=== PATIENT | male | born 1955 | race Caucasian/White ===

== ENCOUNTER → 2020-09-19 | Outpatient (CLI) | payer MEDICARE | END | disposition home or self-care (01) | LOC: LABPAT 10:16 | PROVIDERS: ATTEND Orthopaedic Surgery Orthopaedic Surgery of the Spine | DX: Z01.812 Encounter for preprocedural laboratory examination (principal); M99.73 Connective tissue and disc stenosis of intervertebral foramina of lumbar region | CPT/HCPCS: 87070 ==

== ENCOUNTER → 2020-09-27 | Outpatient (CLI) | payer MEDICARE | END | disposition home or self-care (01) | LOC: LABPAT 13:06 | PROVIDERS: ATTEND Orthopaedic Surgery Orthopaedic Surgery of the Spine | DX: Z01.812 Encounter for preprocedural laboratory examination (principal) | CPT/HCPCS: 86850; 86900; 86901 ==

== ENCOUNTER 2020-10-02 08:27 | Inpatient (IN) | payer MEDICARE ==
[~2020-10-02 08:27] MED LIST: DEXAMETHASONE SOD PHOSPHATE 4 MG/ML 1 ML VIAL IV PRN; LIDOCAINE 1% (10MG/ML) FOR IV START INTRADERMA PRN; ONDANSETRON 4 MG/2 ML VIAL IVP PRN; ceFAZolin 1,000 MG in SODIUM CHLORIDE 0.9% IRRIGATIO 1,000 ML IRRIGATION PRN; ceFAZolin 3 GM in SODIUM CHLORIDE 0.9% 100 ML IVPB PRN
[2020-10-02] MEDS: LACTATED RINGERS 1,000 ML IV SCH (10:50)
[2020-10-02 11:04] LABS: Glucose,Whole Blood 138 mg/dL (75-99)
[2020-10-02] MEDS ORDERED: ROCURONIUM 10 MG/ML (5 ML VIAL) IV ONE (11:51)
[2020-10-02] MEDS ORDERED: NEOSTIGMINE 1 MG/ML 10 ML VIAL ONE (11:51)
[2020-10-02] MEDS ORDERED: LIDOCAINE 1% INJ 10MG/ML (20 ML MDV) ONE (11:51)
[2020-10-02] MEDS ORDERED: HEPARIN SODIUM,PORCINE 10,000 UNIT/ML 1 ML VIAL ONE (11:51)
[2020-10-02] MEDS ORDERED: SUCCINYLCHOLINE CHLORIDE VIAL 200 MG/10 ML VIAL IV ONE (11:51)
[2020-10-02] MEDS ORDERED: MIDAZOLAM 2 MG/2 ML VIAL ONE (11:51)
[2020-10-02] MEDS ORDERED: GLYCOPYRROLATE 0.2 MG/ML 2 ML VIAL ONE (11:51)
[2020-10-02] MEDS ORDERED: PHENYLEPHRINE-0.9% NACL SYG 1,000 MCG/10 ML SYRINGE ONE (11:51)
[2020-10-02] MEDS ORDERED: ePHEDrine SULFATE/0.9% NACL/PF 50 MG/5 ML SYRINGE IV ONE (11:51)
[2020-10-02] MEDS ORDERED: SODIUM CHLORIDE 0.9% IRRIG 1,000 ML BTL IRRIGATION ONE (11:51)
[2020-10-02] MEDS ORDERED: KETAMINE 10 MG/ML 20 ML VIAL ONE (11:51)
[2020-10-02] MEDS ORDERED: PROPOFOL 10 MG/ML 20 ML VIAL IV ONE (11:51)
[2020-10-02] MEDS ORDERED: fentaNYL (PF) 50 MCG/ML 2 ML AMP ONE (11:51)
[2020-10-02] MEDS ORDERED: LIDOCAINE 0.5%-EPI 1:200,000 50 ML VIAL SQ ONE (11:55)
[2020-10-02] MEDS ORDERED: GELATIN SPONGE,ABSORB (LARGE) 1 EACH SPONGE TOPICAL ONE (11:55)
[2020-10-02] MEDS ORDERED: THROMBIN (BOVINE) 5,000 UNIT VIAL TOPICAL ONE (11:55)
[2020-10-02] MEDS ORDERED: LACTATED RINGERS 1,000 ML IV ONE ×3 (12:50→14:04)
[2020-10-02] MEDS ORDERED: SODIUM CHLORIDE 0.9% 50 ML with ceFAZolin 3 GM IV ONE ×2 (15:46)
[2020-10-02] MEDS ORDERED: BENZOCAINE/MENTHOL LOZENG 1 EACH LOZENGE MUCOUS MEM PRN (16:41)
[2020-10-02] MEDS ORDERED: HYDROmorphone 0.5 MG/0.5 ML SYRINGE IVP PRN (16:41)
[2020-10-02] MEDS ORDERED: ONDANSETRON 4 MG/2 ML VIAL IVP PRN (16:41)
[2020-10-02] MEDS ORDERED: diazePAM 5 MG TAB PO PRN (16:41)
[2020-10-02] MEDS ORDERED: MAGNESIUM HYDROXIDE 2,400 MG/10 ML CUP PO PRN (16:41)
[2020-10-02] MEDS ORDERED: ACETAMINOPHEN TAB 500 MG TAB PO PRN (16:44)
--- NOTE | 2020-10-02 16:50 | P.OP ---
Date of Procedure: 10/02/20 Preoperative Diagnosis: Spinal stenosis L3 4 L4 5, lower extremity radiculopathy, neurogenic medication bilateral lower extremities, severe facet arthrosis, degenerative disc disease, spondylolisthesis Postoperative Diagnosis: Same Anesthesia: GETA Pathology: none sent Condition: stable Disposition: PACU Description of Procedure: DESCRIPTION OF PROCEDURE(S): BRIEF OPERATIVE NOTE Preoperative Diagnosis: Spinal stenosis L3 4 L4 5, lower extremity radiculopathy, neurogenic medication bilateral lower extremities, severe facet arthrosis, degenerative disc disease, spondylolisthesis Postoperative Diagnosis: SameSpinal stenosis L3 4 L4 5, lower extremity radiculopathy, neurogenic medication bilateral lower extremities, severe facet arthrosis, degenerative disc disease, spondylolisthesis Procedure: Laminectomy and decompression L3 [address] navigation aided Minimally invasive Posterior lateral decompression and facet fusion L3 4 L4 5 Minimally invasive Transforaminal lumbar interbody fusion for a 360 fusion L3 4 L4 5 Discectomy for decompression L3 4 L4 5 Placement of interbody graft L3 4 L4 5 Use of computer navigation for fusion Local autogenous bone grafting Aspiration of bone marrow from the vertebral body pedicle of L3 Use of bone graft extenders Surgeon: Dr. Devine Element Setter: Diallo RODRIGUEZ who is present throughout the entire the case persistence during positioning, dissection, exposure, visualization, and all crucial elements of the case as well as closure. Anesthesia: General anesthesia per Dr. Dr. Bains Estimated blood loss: Approximately 400 mL Complications: None apparent Components implanted: K2M minimally invasive Hope pedicle screw system withscrews measuring 6.5 mm in diameter to rods pro- lift interbody cage measuring 8-13 and 10-16 with 10 mL of osteo amp bio4 bone graft substitute and 30 mL of the BX bone fibers to supplement the local autogenous bone graft and bone marrow aspirate Disposition: To recovery room in good stable condition. OPERATIVE INDICATIONS The patient has had severe issues at their lower extremity in her lower back over the past several years with significant worsening over the past several months. Over the past few months the patient had pain at her back and there right lower extremity. The patient is having severe radicular symptoms.. The patient is having significant pain in his back. He is having worsening pain despite aggressive conservative treatment They are unable to obtain any comfort. We did aggressive conservative treatment with medications therapy and interventional pain management however she was not having any relief. The patient has been through conservative treatment. We discussed various treatment options including surgery, and the patient wishes to proceed with surgery We discussed the risk, patient's alternatives and benefits of surgery including but not limited to, risk of bleeding risk of infection, risk of need for further surgery, risk of decreased, loss of motion, muscle function, malunion nonunion, hardware failure, nerve damage, paralysis, heart attack, blindness and . They understood issues with the current pandemic and the possibility of exposure. OPERATIVE SUMMARY After discussing all the risks, patient alternatives and benefits at length, the patient elected to proceed with surgical intervention, signed informed consent, and presented for their procedure. The patient was seen and examined in the preoperative holding area and the surgical site was marked. The patient was given antibiotics and brought to the operating room. The patient was sedated and intubated by anesthesia in standard fashion. The patient was positioned on to the operating room table in a prone position on the appropriate frame which was well-padded and well molded. We were careful to pad any bony prominences and pressure points. We were careful to maintain the patient's cervical spine and good neutral alignment and position throughout. The patient was prepped and draped in a normal standard fashion. An appropriate timeout and keystone protocol performed. We were able to proceed with the surgery. The local wound area was infiltrated with local anesthetic. Over L3 to 5 Over the right iliac crest I was able to make small stab incisions and establish a guidepin screw fixation to the iliac crest 2. I was able place the computer referencing device over the guidepins to establish an appropriate reference point for the Ziem CT navigation. We then were able to place patient in an appropriate drape and do a navigation spin for visualization and 3-D recon struction of the lumbar spine. I was able utilize C-arm guidance and navigation to establish appropriate position over the pedicles bilaterally at the appropriate levels . With the appropriate levels confirmed was able to make small stab incisions over the appropriate pedicle sites bilaterally at L3-L4 and L5 bilaterally. Utilizing the computer navigation device I was able to establish bony landmarks at the right iliac crest for a bony reference point for the navigation device. I was able to establish a Jamshidi needle over the lateral aspect of the pedicle and advanced the trocar into the pedicle being careful not to breech superiorly inferiorly medially or laterally using computer navigation device. Position was confirmed regularly with AP and lateral images on C-arm and with the computer navigation device at the appropriate levels bilaterally. I was able to establish the trocar into the pedicle appropriately into the posterior aspect of the vertebral body bilaterally at the appropriate levels. This was done at each of the pedicle positions and each of the vertebrae. At the superior vertebrae of L3 I was able to take approximately 25 mL of bone aspiration for use later in the case to supplement the allograft and autograft bone. I was able place the guidewire into the trocar and into the vertebral body appropriately under C-arm guidance. Dissection was taken down over the wire to the appropriate starting position for the screw placed. The appropriate length screw was chosen, threaded over the guidewire and screwed appropriately into the pedicle and vertebral body under C-arm guidance in excellent alignment and position with good bony purchase. This is done at each of the screw sites at the appropriate levels at L3 4 and 5.. With the screws intact I extended the incision to connect the screw hole sites on the most symptomatic side on the right. I dissected down to establish access over the pars and lamina to the base of the spinous process. I was able to expose the facet joint. Note was made of severe facet arthrosis with extensive osteophytic spurring which had to be removed. I performed this at both L3 4 and L4 5 on the right The capsule the facet was taken down and showed some facet arthrosis at the joint. I was able to use a combination of curettes and Kerrison rongeurs and a high-speed drill to take down the facet joint and do a facetectomy. I was able get excellent foraminal decompression and central decompression with undermining across midline to perform a laminectomy centrally and contralaterally. As able get good central decompression. The ligamentum flavum was taken down to further decompress centrally and at bilateral neural foramen. I was able to expose the disc space and visualize the traversing nerve root. Note was made of some disc protrusion and disc herniation that was abutting the traversing nerve root at the level causing further compression of the nerve root. I was able to establish a annulotomy at the appropriate level protecting soft tissue and neural structures. Note was made of some disc desiccation at the disc. I performed a complete discectomy with accommodation of curettes and rasps and scrapers. I was able get good endplate preparation at the disc space. I sized for the appropriate size interbody spacer protecting the soft tissue and neural structures. The wound was copiously irrigated and suctioned dry. There is no evidence of any dural tear or leak. I was able to pack the disc space with local autogenous bone graft as well as a small amount of bone graft which was also placed into the interbody cage itself. Protecting the soft tissue structures and neural structures I was able place the interbody cage in good alignment. I used expandable lift cages and was able to expand the cages for the 8-13 cage at L4 5 and the t10-16 cage at L3 4 and good position with good fit and fill at the interbody space. Position was confirmed with C-arm guidance. Good hemostasis maintained. There is no evidence of any dural tear or leak. The wound was irrigated and suctioned dry. With the hardware intact, intraoperative C-arm imaging was again taken which showed good alignment and position of the hardware at the appropriate levels. We were then able to measure, contour and place the rods and appropriate hardware bilaterally. I was able to place capcrews, tighten them down, and torque them with the torque screwdriver appropriately. With this intact I was able to place the local autogenous bone graft with additional bone graft enhancer as necessary into the posterior lateral gutters over the decorticated transverse processes and facet joints on the contralateral side. The remainder of the bone graft was placed over the facet joint on the contralateral side after taking down the facet joint capsule. With the bone graft intact, a stable construct, and good decompression at the appropriate levels, we were able to proceed with closure. Good hemostasis was maintained. There is no evidence of dural tear or leak. The fascia was closed for a watertight closure. he subcuticular tissue was closed with absorbable suture. The wound was cleaned and dried and dressed with the appropriate dressing. The drapes were broken down. The patient was gently rolled back onto their hospital bed being careful to maintain their cervical spine and good neutral alignment and position. They were woken up by anesthesia, extubated, and brought to the recovery room in good stable condition. The patient will be admitted to the hospital for appropriate postoperative care, medical management and monitoring. We will continue to follow them closely about the postoperative course.
[2020-10-02 17:18] LABS: Glucose,Whole Blood 131 mg/dL (75-99)
[2020-10-02] MEDS: HYDROmorphone 0.5 MG/0.5 ML SYRINGE IVP PRN ×2 (17:19→17:23)
[2020-10-02] MEDS ORDERED: ONDANSETRON 4 MG/2 ML VIAL IVP ONE (17:19)
[2020-10-02] MEDS: HYDROmorphone 1 MG/ML 1 ML SYRINGE IVP PRN (19:20)
[2020-10-02] MEDS: metFORMIN 500 MG TAB PO SCH (20:34)
[2020-10-02] MEDS: COLCHICINE 0.6 MG EACH PO SCH (20:34)
[2020-10-02] MEDS: lisinopriL 10 MG TAB PO SCH (20:34)
[2020-10-02] MEDS: GABAPENTIN 300 MG CAP PO SCH (20:34)
[2020-10-02] MEDS: allopurinoL 100 MG TAB PO SCH (20:34)
[2020-10-02] MEDS: METOPROLOL SUCCINATE (ER) 50 MG TAB.ER.24H PO SCH (20:35)
[2020-10-02] MEDS: HYDROcodone/APAP 5-325MG 1 EACH TAB PO PRN (20:35)
[2020-10-02] MEDS: SODIUM CHLORIDE 0.9% 1,000 ML IV SCH (20:37)
[2020-10-02] MEDS: NON FORMULARY DRUG (Lovastatin 20 MG Tab) PO SCH (20:37)
[2020-10-02] MEDS: ceFAZolin 3 GM in SODIUM CHLORIDE 0.9% 100 ML IVPB SCH (22:58)
--- NOTE | 2020-10-02 23:03 | P.CONS ---
History of Present Illness - Reason for Consult Consult date: 10/02/20 Medical management Requesting physician: Piyush Devine - Chief Complaint Lumbar surgery - History of Present Illness Consultation: This is a pleasant 65-year-old patient, Dr. Mcgovern chronic stable medical conditions include diabetes, hypertension, hyperlipidemia, peripheral neuropathy, gout, does not use CPAP. Patient has a long-standing history of low back pain with neuropathy with pain going down the right leg. Causing difficulty in walking. Patient had been using a cane. Patient dispensed dose at L3-L4, L4-L5 DJD, spondylolisthesis. Patient underwent laminectomy and decompression. Postprocedure patient reclining in bed. Some pain is present. He does all day feels some pressure off the legs. No nausea vomiting. Did tolerate his supper. No chest pain or shortness of breath Review of systems: GEN.: Tired EYES: None HEENT: None NECK: None RESPIRATORY: None CARDIOVASCULAR: None GASTROINTESTINAL: None GENITOURINARY: Has a Andrade catheter MUSCULOSKELETAL: As above LYMPHATICS: None HEMATOLOGICAL: None PSYCHIATRY: None NEUROLOGICAL: None Past medical history to include: Diabetes, hypertension, hyperlipidemia, obstructive sleep apnea does not use CP AP, peripheral neuropathy, gout, Social history: Lives with his . Alcohol occasionally. No smoking. Family history: Reviewed, noncontributory to presentation Physical examination: VITAL SIGNS: 97.7, 78, 137/77, 94% on 1 L GENERAL: BMI 42.8, sitting up, reclining in bed, awake. EYES: Pupils equal. Conjunctiva normal. HEENT: External appearance of nose and ears normal, oral cavity grossly normal. NECK: JVD unable to assess masses not palpable. HEART: Heart sounds distant; no edema. LUNGS: Respiratory rate normal; distant breath sounds. ABDOMEN: Soft, nontender, liver spleen not palpable, no masses palpable. PSYCH: Alert and oriented x3; mood and affect normal. NEUROLOGICAL: Cranial nerves grossly intact; no facial asymmetry, power and sensation grossly intact. LYMPHATICS: No lymph nodes palpable in the axilla and neck Assessment and plan: -Lumbar stenosis L3-L4, L4-L5 with DJD with significant radiculopathy. Still undergone laminectomy and discectomy. -Morbid obesity BMI 42.8. For weight loss measures. Follow up with his PCP. See dietitian -Diabetes mellitus type 2, resume Glucophage, follow Accu-Cheks -Essential hypertension, continue with Toprol-XL Zestril colchicine -Hyperlipidemia, continue with Mevacor -Obstructive sleep apnea does not use CPAP -Diabetic peripheral neuropathy, follow clinically. Patient on Neurontin -Chronic gout, continue with allopurinol Medicine for pain control and is in place. Venodyne boots. Care was discussed with the patient. Questions answered. Thank you Dr. Devine Past Medical History Past Medical History: Diabetes Mellitus, Hyperlipidemia, Hypertension, Musculoskeletal Disorder, Sleep Apnea/CPAP/BIPAP Additional Past Medical History / Comment(s): Gout. Neuropathy feet. Lumbar spine prob. No CPAP use currently. Edema BLE minor. Had Covid-19 vaccine x2. History of Any Multi-Drug Resistant Organisms: None Reported Past Surgical History: Orthopedic Surgery Additional Past Surgical History / Comment(s): Rt knee scope. Exc fatty tumor rib cage. Past Anesthesia/Blood Transfusion Reactions: No Reported Reaction Past Psychological History: No Psychological Hx Reported Smoking Status: Never smoker Past Alcohol Use History: Occasional Past Drug Use History: None Reported - Past Family History Mother Family Medical History: No Reported History Medications and Allergies Home Medications Medication Instructions Recorded Confirmed Type Acetaminophen [Tylenol Extra 500 mg PO DIRECTED PRN 09/16/20 09/27/20 History Strength] Allopurinol [Zyloprim] 100 mg PO HS 09/16/20 09/27/20 History Colchicine [Colcrys] 0.6 mg PO HS 09/16/20 09/27/20 History Gabapentin [Neurontin] 300 mg PO HS 09/16/20 09/27/20 History Lisinopril [Zestril] 10 mg PO HS 09/16/20 09/27/20 History Lovastatin [Mevacor] 20 mg PO HS 09/16/20 09/27/20 History Metoprolol Succinate [Toprol XL] 50 mg PO HS 09/16/20 09/27/20 History hydroCHLOROthiazide [Hydrodiuril] 50 mg PO HS 09/16/20 09/27/20 History metFORMIN HCL [Glucophage] 1,000 mg PO BID 09/16/20 09/27/20 History Allergies Allergy/AdvReac Type Severity Reaction Status Date / Time naproxen [From Naprosyn] Allergy Rash/Hives Verified 10/02/20 10:34 atorvastatin [From Lipitor] AdvReac elevated Verified 10/02/20 10:34 liver count Physical Exam Vitals: Vital Signs Temp Pulse Resp BP Pulse Ox 10/02/20 20:00 68 16 10/02/20 19:58 68 113/73 93 L 10/02/20 19:43 72 122/77 92 L 10/02/20 19:28 75 124/73 93 L 10/02/20 19:13 74 121/71 95 10/02/20 18:58 71 128/78 94 L 10/02/20 18:43 74 143/69 94 L 10/02/20 18:28 77 124/78 10/02/20 18:13 77 118/66 94 L 10/02/20 17:58 97.7 F 78 137/77 87 L 10/02/20 17:42 68 16 124/60 93 L 10/02/20 17:30 65 16 100/59 92 L 10/02/20 17:15 68 14 109/56 94 L 10/02/20 17:00 68 14 96/51 97 10/02/20 16:55 97.8 F 74 16 97/58 96 10/02/20 10:42 98.6 F 84 16 153/80 96 Intake and Output 10/02/20 10/02/20 10/02/20 06:59 14:59 22:59 Intake Total 2701 350 Output Total 1775 Balance 2701 -1425 Intake: IV 2701 350 Output: Urine 975 Estimated Blood Loss 800 Other: Voiding Method Indwelling Catheter Weight 147.3 kg 147.3 kg Results Labs: Abnormal Lab Results - Last 24 Hours (Table) 10/02/20 10/02/20 Range/Units 10:58 17:16 POC Glucose (mg/dL) 138 H 131 H (75-99) mg/dL
[2020-10-03] MEDS: LACTATED RINGERS 1,000 ML IV SCH (01:08)
[2020-10-03] MEDS: HYDROmorphone 1 MG/ML 1 ML SYRINGE IVP PRN ×2 (04:18→14:22)
[2020-10-03] MEDS: HYDROcodone/APAP 5-325MG 1 EACH TAB PO PRN ×4 (05:55→21:17)
--- NOTE | 2020-10-03 07:57 | FL ---
Fluoroscopy INDICATION: Pain FINDINGS: Fluoroscopy time: 25 seconds. Images obtained: 0. IMPRESSIONS: 1. Documentation of fluoroscopy.
[2020-10-03] MEDS: metFORMIN 500 MG TAB PO SCH ×2 (08:00→21:17)
--- NOTE | 2020-10-03 08:00 | XR ---
Fluoroscopy INDICATION: Pain FINDINGS: Fluoroscopy time: 25 seconds. Images obtained: 2. IMPRESSIONS: 1. Documentation of fluoroscopy.
[2020-10-03] MEDS: ceFAZolin 3 GM in SODIUM CHLORIDE 0.9% 100 ML IVPB SCH (08:01)
[2020-10-03] MEDS: SENNOSIDES-DOCUSATE SODIUM 1 EACH TAB PO SCH (08:01)
[2020-10-03 09:51] LABS: African American GFR (CKD) 73.1 (60.0-200.0); Anion Gap 13.7 mmol/L (4.00-12.00); BUN/Creat Ratio 17.5 Ratio (12.00-20.00); Carbon Dioxide 26.3 mmol/L (21.6-31.8); Non-African American GFR(CKD) 63.1 (60.0-200.0); Potassium 4.1 mmol/L (3.5-5.5)
[2020-10-03 10:15] LABS: Basophils # (A) 0.06 X 10*3/uL (0.00-0.10); Basophils % (A) 0.5 %; Eosinophils # (A) 0.08 X 10*3/uL (0.04-0.35); Eosinophils % (A) 0.6 %; HCT 43.3 % (39.6-50.0); HGB 14.2 g/dL (13.0-17.0); Lymphocytes % (A) 12.5 %; MCH 31.3 pg (27.0-32.0); MCHC 32.8 g/dL (32.0-37.0); MCV 95.4 fL (80.0-97.0); Mean Platelet Volume 13.7 fL (9.5-12.2); Monocytes # (A) 1.32 X 10*3/uL (0.20-1.00); Monocytes % (A) 10.4 %; Neutrophils # (A) 9.61 X 10*3/uL (1.80-7.70); Neutrophils % (A) 75.4 %; Platelet Count 197 X 10*3/uL (140-440); RBC 4.54 X 10*6/uL (4.40-5.60); RDW 14.3 % (11.5-14.5); WBC 12.75 X 10*3/uL (4.50-10.00)
--- NOTE | 2020-10-03 10:49 | P.PN ---
Progress Note - Text Progress Note Date: 10/03/20 Postoperative day #1 Patient is seen and examined today at bedside. The patient has some pain around the surgical site as expected. Pain is being controlled with medication. He was able get out of bed last night and this morning. He has his Andrade removed he has not yet urinated. He is tolerating his diet adequately. Physical Exam Afebrile with stable vital signs Abdomen is soft nontender. Chest has good excursion deep and space expiration The incision site is clean dry and intact. No erythema there is no purulence. There is no active drainage. Extremities have not had neurologic change from prior to surgery. He has sustained dorsal flexion plantarflexion and EHL intact Calves and thighs were soft nontender without evidence of DVT. Assessment/Plan Postoperative day #1 status post minimally invasive decompression and fusion L3 4 L4 5 for severe stenosis with degenerative disc disease and facet arthrosis lower extremity radiculopathy Patient is progressing as expected from the surgery. He is doing well with his pain control and has been able to mobilize. He is not yet urinated and still require significant help for changing positions. I think he'll be okay for discharge home likely on Wednesday. We will continue to increase the patient's mobilization with therapy. We will continue pain control with oral or IV medications. We'll continue to follow patient closely.
[2020-10-03] MEDS: SODIUM CHLORIDE 0.9% 1,000 ML IV SCH ×2 (14:10→21:13)
[2020-10-03] MEDS: lisinopriL 10 MG TAB PO SCH (21:17)
[2020-10-03] MEDS: GABAPENTIN 300 MG CAP PO SCH (21:17)
[2020-10-03] MEDS: METOPROLOL SUCCINATE (ER) 50 MG TAB.ER.24H PO SCH (21:17)
[2020-10-03] MEDS: COLCHICINE 0.6 MG EACH PO SCH (21:18)
[2020-10-03] MEDS: allopurinoL 100 MG TAB PO SCH (21:19)
[2020-10-03] MEDS: NON FORMULARY DRUG (Lovastatin 20 MG Tab) PO SCH (21:25)
--- NOTE | 2020-10-03 23:17 | P.PN ---
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 Patient has a long-standing history of low back pain with neuropathy with pain going down the right leg. Causing difficulty in walking. Patient had been using a cane. Abnormality at L3-L4, L4-L5 DJD, spondylolisthesis. Patient underwent laminectomy and decompression. Today: Supple the patient this morning. Sitting upon a chair. Andrade catheter discontinued. Some pain present. No nausea vomiting. Did tolerate his breakfast. Review of systems: Was done for constitutional, cardiovascular, GI, pulmonary. relevant finding as above Active Medications Acetaminophen (Acetaminophen Tab 500 Mg Tab) 500 mg PO Q6H PRN PRN Reason: Pain Hydrocodone Bitart/Acetaminophen (Hydrocodone/Apap 5-325mg 1 Each Tab) 1 each PO Q4HR PRN PRN Reason: Moderate Pain Last Admin: 10/03/20 21:17 Dose: 1 each Documented by: Hydrocodone Bitart/Acetaminophen (Hydrocodone/Apap 5-325mg 1 Each Tab) 2 each PO Q4HR PRN PRN Reason: Moderate Pain Last Admin: 10/03/20 16:45 Dose: 2 each Documented by: Allopurinol (Allopurinol 100 Mg Tab) 100 mg PO [facility] Last Admin: 10/03/20 21:19 Dose: 100 mg Documented by: Benzocaine/Menthol (Benzocaine/Menthol Lozeng 1 Each Lozenge) 1 each MUCOUS MEM Q4HR PRN PRN Reason: Sore Throat Colchicine (Colchicine 0.6 Mg Each) 0.6 mg PO [facility] Last Admin: 10/03/20 21:18 Dose: 0.6 mg Documented by: Dexamethasone Sodium Phosphate (Dexamethasone Sod Phosphate 4 Mg/Ml 1 Ml Vial) 4 mg IV ONCE PRN PRN Reason: PRE-OP Diazepam (Diazepam 5 Mg Tab) 5 mg PO QID PRN PRN Reason: Anxiety Gabapentin (Gabapentin 300 Mg Cap) 300 mg PO [facility] Last Admin: 10/03/20 21:17 Dose: 300 mg Documented by: Hydrochlorothiazide (Hydrochlorothiazide 50 Mg Tab) 50 mg PO [facility] Last Admin: 10/03/20 21:18 Dose: 50 mg Documented by: Hydromorphone HCl (Hydromorphone 0.5 Mg/0.5 Ml Syringe) 0.5 mg IVP Q4HR PRN PRN Reason: Pain Hydromorphone HCl (Hydromorphone 1 Mg/Ml 1 Ml Syringe) 1 mg IVP Q4HR PRN PRN Reason: Pain Last Admin: 10/03/20 14:22 Dose: 1 mg Documented by: Sodium Chloride (Saline 0.9%) 1,000 mls @ 75 mls/hr IV .[id number] [facility] Last Admin: 10/03/20 21:13 Dose: Not Given Documented by: Lidocaine HCl (Lidocaine 1% (10mg/Ml) For Iv Start) 0.1 ml INTRADERMA PER PROTOCOL PRN PRN Reason: IV Start Last Admin: 10/02/20 10:50 Dose: 0.1 ml Documented by: Lisinopril (Lisinopril 10 Mg Tab) 10 mg PO [facility] Last Admin: 10/03/20 21:17 Dose: 10 mg Documented by: Magnesium Hydroxide (Magnesium Hydroxide 2,400 Mg/10 Ml Cup) 2,400 mg PO DAILY PRN PRN Reason: Constipation Metformin HCl (Metformin 500 Mg Tab) 1,000 mg PO BID [facility] Last Admin: 10/03/20 21:17 Dose: 1,000 mg Documented by: Metoprolol Succinate (Metoprolol Succinate (Er) 50 Mg Tab.Er.24h) 50 mg PO [facility] Last Admin: 10/03/20 21:17 Dose: 50 mg Documented by: Non-Formulary Medication (Lovastatin) 20 mg PO [facility] Last Admin: 10/03/20 21:25 Dose: Not Given Documented by: Ondansetron HCl (Ondansetron 4 Mg/2 Ml Vial) 4 mg IVP ONCE PRN PRN Reason: PRE-OP Last Admin: 10/02/20 11:00 Dose: 4 mg Documented by: Ondansetron HCl (Ondansetron 4 Mg/2 Ml Vial) 4 mg IVP Q6HR PRN PRN Reason: Nausea Senna/Docusate Sodium (Sennosides-Docusate Sodium 1 Each Tab) 1 each PO DAILY [facility] Last Admin: 10/03/20 08:01 Dose: 1 each Documented by: Past medical history to include: Diabetes, hypertension, hyperlipidemia, obstructive sleep apnea does not use CPAP, peripheral neuropathy, gout, Social history: Lives with his . Alcohol occasionally. No smoking. Family history: Reviewed, noncontributory to presentation Physical examination: VITAL SIGNS: 98.1, 83, 19, 105/69, 98% on room air GENERAL: BMI 42.8, sitting up, in a chair EYES: Pupils equal. Conjunctiva normal. HEENT: External appearance of nose and ears normal, oral cavity grossly normal. NECK: JVD unable to assess masses not palpable. HEART: Heart sounds distant; no edema. LUNGS: Respiratory rate normal; distant breath sounds. ABDOMEN: Soft, nontender, liver spleen not palpable, no masses palpable. PSYCH: Alert and oriented x3; mood and affect normal. Investigations: WBC 12.7 hemoglobin 14.2 potassium 4.1 creatinine 1.2 Assessment and plan: -Lumbar stenosis L3-L4, L4-L5 with DJD with significant radiculopathy. Status post laminectomy and discectomy. -Morbid obesity BMI 42.8. For weight loss measures. Follow up with his PCP. See dietitian -Diabetes mellitus type 2, resume Glucophage, follow Accu-Cheks -Essential hypertension, continue with Toprol-XL Zestril colchicine -Hyperlipidemia, continue with Mevacor -Obstructive sleep apnea does not use CPAP -Diabetic peripheral neuropathy, follow clinically. Patient on Neurontin -Chronic gout, continue with allopurinol Discussed with the patient. Increase activity as tolerated. Thank you Dr. Devine
[2020-10-04] MEDS: HYDROcodone/APAP 5-325MG 1 EACH TAB PO PRN ×5 (00:48→21:14)
[2020-10-04 07:10] LABS: Glucose,Whole Blood 132 mg/dL (75-99)
[2020-10-04] MEDS: INSULIN ASPART (NovoLOG) 100 UNIT/ML VIAL SQ SCH ×4 (07:39→21:15)
--- NOTE | 2020-10-04 07:45 | P.PN ---
Progress Note - Text Progress Note Date: 10/04/20 Postoperative day #2 Patient is seen and examined today at bedside. The patient has some pain around the surgical site as expected. He feels the pain is stabbing and primarily at his back and across his hips. He is not having any new changes in his legs. His legs feel good but he is having difficulty getting from a sitting to standing position and from a laying to sitting position as expected. Pain is being controlled with medication. He is not taking any IV pain medication at this point and is tolerating adequately with orals. He is tolerating his regular diet. Physical Exam Afebrile with stable vital signs Abdomen is soft nontender. Chest has good excursion deep and space expiration The incision site is clean dry and intact. No erythema there is no purulence. There is no active drainage. There is no erythema. Extremities have not had neurologic change from prior to surgery. He has sustained dorsal flexion plantar flexion and EHL intact. Calves and thighs were soft nontender without evidence of DVT. Assessment/Plan Postoperative day #2 status post Base of decompression and fusion L3 4 L4 5 for his severe spinal stenosis with disc degeneration and listhesis with lower extremity radiculopathy Patient is progressing as expected from the surgery. He is still having some trouble changing positions and getting up on his own has not quite safe to be at home on his own. He will continue to work with therapy and hopefully he'll be more mobile tomorrow for possible discharge home We will continue to increase the patient's mobilization with therapy. We will continue pain control with oral or IV medications. We'll continue to follow patient closely.
[2020-10-04] MEDS: metFORMIN 500 MG TAB PO SCH ×2 (08:13→21:14)
[2020-10-04] MEDS: SENNOSIDES-DOCUSATE SODIUM 1 EACH TAB PO SCH (08:13)
[2020-10-04] MEDS: SODIUM CHLORIDE 0.9% 1,000 ML IV SCH ×2 (09:00→23:54)
[2020-10-04] MEDS: HYDROmorphone 1 MG/ML 1 ML SYRINGE IVP PRN ×2 (09:41→15:08)
[2020-10-04 11:37] LABS: Glucose,Whole Blood 143 mg/dL (75-99)
[2020-10-04 16:45] LABS: Glucose,Whole Blood 127 mg/dL (75-99)
[2020-10-04 20:29] LABS: Glucose,Whole Blood 156 mg/dL (75-99)
[2020-10-04] MEDS: METOPROLOL SUCCINATE (ER) 50 MG TAB.ER.24H PO SCH (21:14)
[2020-10-04] MEDS: GABAPENTIN 300 MG CAP PO SCH (21:14)
[2020-10-04] MEDS: allopurinoL 100 MG TAB PO SCH (21:14)
[2020-10-04] MEDS: lisinopriL 10 MG TAB PO SCH (21:14)
[2020-10-04] MEDS: COLCHICINE 0.6 MG EACH PO SCH (21:15)
--- NOTE | 2020-10-04 21:45 | P.PN ---
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 Patient has a long-standing history of low back pain with neuropathy with pain going down the right leg. Causing difficulty in walking. Patient had been using a cane. Abnormality at L3-L4, L4-L5 DJD, spondylolisthesis. Patient underwent laminectomy and decompression. Today: Sitting up in a chair. Did walk with a walker. Feeling better. Oral intake fair. at the bedside. Feels better. Review of systems: Was done for constitutional, cardiovascular, GI, pulmonary. relevant finding as above Active Medications Acetaminophen (Acetaminophen Tab 500 Mg Tab) 500 mg PO Q6H PRN PRN Reason: Pain Hydrocodone Bitart/Acetaminophen (Hydrocodone/Apap 5-325mg 1 Each Tab) 1 each PO Q4HR PRN PRN Reason: Moderate Pain Last Admin: 10/04/20 17:01 Dose: 1 each Documented by: Hydrocodone Bitart/Acetaminophen (Hydrocodone/Apap 5-325mg 1 Each Tab) 2 each PO Q4HR PRN PRN Reason: Moderate Pain Last Admin: 10/04/20 21:14 Dose: 2 each Documented by: Allopurinol (Allopurinol 100 Mg Tab) 100 mg PO [facility] Last Admin: 10/04/20 21:14 Dose: 100 mg Documented by: Benzocaine/Menthol (Benzocaine/Menthol Lozeng 1 Each Lozenge) 1 each MUCOUS MEM Q4HR PRN PRN Reason: Sore Throat Colchicine (Colchicine 0.6 Mg Each) 0.6 mg PO [facility] Last Admin: 10/04/20 21:15 Dose: 0.6 mg Documented by: Dexamethasone Sodium Phosphate (Dexamethasone Sod Phosphate 4 Mg/Ml 1 Ml Vial) 4 mg IV ONCE PRN PRN Reason: PRE-OP Diazepam (Diazepam 5 Mg Tab) 5 mg PO QID PRN PRN Reason: Anxiety Gabapentin (Gabapentin 300 Mg Cap) 300 mg PO [facility] Last Admin: 10/04/20 21:14 Dose: 300 mg Documented by: Hydrochlorothiazide (Hydrochlorothiazide 50 Mg Tab) 50 mg PO [facility] Last Admin: 10/04/20 21:15 Dose: 50 mg Documented by: Hydromorphone HCl (Hydromorphone 0.5 Mg/0.5 Ml Syringe) 0.5 mg IVP Q4HR PRN PRN Reason: Pain Hydromorphone HCl (Hydromorphone 1 Mg/Ml 1 Ml Syringe) 1 mg IVP Q4HR PRN PRN Reason: Pain Last Admin: 10/04/20 15:08 Dose: 1 mg Documented by: Sodium Chloride (Saline 0.9%) 1,000 mls @ 75 mls/hr IV .[id number] [facility] Last Admin: 10/04/20 09:00 Dose: Not Given Documented by: Insulin Aspart (Insulin Aspart (Novolog) 100 Unit/Ml Vial) 0 unit SQ [facility]; Protocol Last Admin: 10/04/20 21:15 Dose: 2 unit Documented by: Lidocaine HCl (Lidocaine 1% (10mg/Ml) For Iv Start) 0.1 ml INTRADERMA PER PROTOCOL PRN PRN Reason: IV Start Last Admin: 10/02/20 10:50 Dose: 0.1 ml Documented by: Lisinopril (Lisinopril 10 Mg Tab) 10 mg PO [facility] Last Admin: 10/04/20 21:14 Dose: 10 mg Documented by: Magnesium Hydroxide (Magnesium Hydroxide 2,400 Mg/10 Ml Cup) 2,400 mg PO DAILY PRN PRN Reason: Constipation Metformin HCl (Metformin 500 Mg Tab) 1,000 mg PO BID [facility] Last Admin: 10/04/20 21:14 Dose: 1,000 mg Documented by: Metoprolol Succinate (Metoprolol Succinate (Er) 50 Mg Tab.Er.24h) 50 mg PO [facility] Last Admin: 10/04/20 21:14 Dose: 50 mg Documented by: Non-Formulary Medication (Lovastatin) 20 mg PO [facility] Last Admin: 10/03/20 21:25 Dose: Not Given Documented by: Ondansetron HCl (Ondansetron 4 Mg/2 Ml Vial) 4 mg IVP ONCE PRN PRN Reason: PRE-OP Last Admin: 10/02/20 11:00 Dose: 4 mg Documented by: Ondansetron HCl (Ondansetron 4 Mg/2 Ml Vial) 4 mg IVP Q6HR PRN PRN Reason: Nausea Senna/Docusate Sodium (Sennosides-Docusate Sodium 1 Each Tab) 1 each PO DAILY [facility] Last Admin: 10/04/20 08:13 Dose: 1 each Documented by: Past medical history to include: Diabetes, hypertension, hyperlipidemia, obstructive sleep apnea does not use CPAP, peripheral neuropathy, gout, Social history: Lives with his . Alcohol occasionally. No smoking. Family history: Reviewed, noncontributory to presentation Physical examination: VITAL SIGNS: 97.9, 80, 18, 130/78, 95% on room air GENERAL: BMI 42.8, sitting up, in a chair EYES: Pupils equal. Conjunctiva normal. HEENT: External appearance of nose and ears normal, oral cavity grossly normal. NECK: JVD unable to assess masses not palpable. HEART: Heart sounds distant; no edema. LUNGS: Respiratory rate normal; distant breath sounds. ABDOMEN: Soft, nontender, liver spleen not palpable, no masses palpable. PSYCH: Alert and oriented x3; mood and affect normal. Investigations: WBC 12.7 hemoglobin 14.2 potassium 4.1 creatinine 1.2 Assessment and plan: -Lumbar stenosis L3-L4, L4-L5 with DJD with significant radiculopathy. Status post laminectomy and discectomy. -Morbid obesity BMI 42.8. For weight loss measures. Follow up with his PCP. See dietitian -Diabetes mellitus type 2, resume Glucophage, follow Accu-Cheks -Essential hypertension, continue with Toprol-XL Zestril colchicine -Hyperlipidemia, continue with Mevacor -Obstructive sleep apnea does not use CPAP -Diabetic peripheral neuropathy, follow clinically. Patient on Neurontin -Chronic gout, continue with allopurinol Discussed with the patient. Doing better Thank you Dr. Devine
[2020-10-04] MEDS: NON FORMULARY DRUG (Lovastatin 20 MG Tab) PO SCH (23:54)
[2020-10-05] MEDS: HYDROcodone/APAP 5-325MG 1 EACH TAB PO PRN ×4 (01:41→21:18)
[2020-10-05 07:29] LABS: Glucose,Whole Blood 130 mg/dL (75-99)
[2020-10-05] MEDS: INSULIN ASPART (NovoLOG) 100 UNIT/ML VIAL SQ SCH ×4 (07:55→21:14)
[2020-10-05] MEDS: SENNOSIDES-DOCUSATE SODIUM 1 EACH TAB PO SCH (08:08)
[2020-10-05] MEDS: HYDROmorphone 1 MG/ML 1 ML SYRINGE IVP PRN ×2 (08:08→17:22)
[2020-10-05] MEDS: metFORMIN 500 MG TAB PO SCH ×2 (08:09→21:11)
--- NOTE | 2020-10-05 10:44 | P.PN ---
Progress Note - Text Progress Note Date: 10/05/20 Postoperative day #3 Patient is seen and examined today at bedside. The patient has some pain around the surgical site as expected. He says his back feels very solid. Pain is being controlled with medication. He is having spasms down his right lower extremity which have been chronic for him. He denies any shortness of breath or chest pain. He still not able get in and out of bed or from a chair on his own. He is not yet had a bowel movement but is passing gas Physical Exam Afebrile with stable vital signs Abdomen is soft nontender. No significant distention Chest has good excursion deep and space expiration The incision site is clean dry and intact. No erythema there is no purulence. Dressings are dry without any drainage Extremities have not had neurologic change from prior to surgery. He has sustained dorsal flexion plantar flexion and EHL intact Calves and thighs were soft nontender without evidence of DVT. Assessment/Plan Postoperative day #3 status post minimally invasive decompression and fusion L3 4 L4 5 for severe spinal stenosis with listhesis and lower extremity radiculopathy Patient is progressing a little bit slowly from the surgery. Saw this is due to his morbid obesity and his inability to mobilize on his own. He is making some improvement with this but he will likely need rehab or detention to get stronger before he is safe to return home on his own. We'll make arrangements for rehab planning. This will likely be for Wednesday. We will continue to increase the patient's mobilization with therapy. He has not had had a bowel movement and will order some Dulcolax orally for him. He is passing gas. I spoke with him and his over the speaker phone today. We will continue pain control with oral or IV medications. We'll continue to follow patient closely.
[2020-10-05] MEDS: bisacodyL 5 MG TABLET.DR PO PRN (11:07)
[2020-10-05 12:05] LABS: Glucose,Whole Blood 156 mg/dL (75-99)
[2020-10-05 16:30] LABS: Glucose,Whole Blood 93 mg/dL (75-99)
[2020-10-05 21:06] LABS: Glucose,Whole Blood 128 mg/dL (75-99)
[2020-10-05] MEDS: allopurinoL 100 MG TAB PO SCH (21:10)
[2020-10-05] MEDS: COLCHICINE 0.6 MG EACH PO SCH (21:10)
[2020-10-05] MEDS: GABAPENTIN 300 MG CAP PO SCH (21:11)
[2020-10-05] MEDS: METOPROLOL SUCCINATE (ER) 50 MG TAB.ER.24H PO SCH (21:11)
[2020-10-05] MEDS: lisinopriL 10 MG TAB PO SCH (21:11)
[2020-10-05] MEDS: NON FORMULARY DRUG (Lovastatin 20 MG Tab) PO SCH (21:15)
--- NOTE | 2020-10-05 22:38 | P.PN ---
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 Patient has a long-standing history of low back pain with neuropathy with pain going down the right leg. Causing difficulty in walking. Patient had been using a cane. Abnormality at L3-L4, L4-L5 DJD, spondylolisthesis. Patient underwent laminectomy and decompression. Today: Feeling better. Has positive flatus but no bowel movement. Oral intake is good. Pain control. Using a walker Review of systems: Was done for constitutional, cardiovascular, GI, pulmonary. relevant finding as above Active Medications Acetaminophen (Acetaminophen Tab 500 Mg Tab) 500 mg PO Q6H PRN PRN Reason: Pain Hydrocodone Bitart/Acetaminophen (Hydrocodone/Apap 5-325mg 1 Each Tab) 1 each PO Q4HR PRN PRN Reason: Moderate Pain Last Admin: 10/05/20 01:41 Dose: 1 each Documented by: Hydrocodone Bitart/Acetaminophen (Hydrocodone/Apap 5-325mg 1 Each Tab) 2 each PO Q4HR PRN PRN Reason: Moderate Pain Last Admin: 10/05/20 21:18 Dose: 2 each Documented by: Allopurinol (Allopurinol 100 Mg Tab) 100 mg PO HS [facility] Last Admin: 10/05/20 21:10 Dose: 100 mg Documented by: Benzocaine/Menthol (Benzocaine/Menthol Lozeng 1 Each Lozenge) 1 each MUCOUS MEM Q4HR PRN PRN Reason: Sore Throat Bisacodyl (Bisacodyl 5 Mg Tablet.) 5 mg PO DAILY PRN PRN Reason: Constipation Last Admin: 10/05/20 11:07 Dose: 5 mg Documented by: Colchicine (Colchicine 0.6 Mg Each) 0.6 mg PO HS [facility] Last Admin: 10/05/20 21:10 Dose: 0.6 mg Documented by: Dexamethasone Sodium Phosphate (Dexamethasone Sod Phosphate 4 Mg/Ml 1 Ml Vial) 4 mg IV ONCE PRN PRN Reason: PRE-OP Diazepam (Diazepam 5 Mg Tab) 5 mg PO QID PRN PRN Reason: Anxiety Gabapentin (Gabapentin 300 Mg Cap) 300 mg PO HS [facility] Last Admin: 10/05/20 21:11 Dose: 300 mg Documented by: Hydrochlorothiazide (Hydrochlorothiazide 50 Mg Tab) 50 mg PO [facility] Last Admin: 10/05/20 21:11 Dose: 50 mg Documented by: Hydromorphone HCl (Hydromorphone 0.5 Mg/0.5 Ml Syringe) 0.5 mg IVP Q4HR PRN PRN Reason: Pain Hydromorphone HCl (Hydromorphone 1 Mg/Ml 1 Ml Syringe) 1 mg IVP Q4HR PRN PRN Reason: Pain Last Admin: 10/05/20 17:22 Dose: 1 mg Documented by: Insulin Aspart (Insulin Aspart (Novolog) 100 Unit/Ml Vial) 0 unit SQ [facility]; Protocol Last Admin: 10/05/20 21:14 Dose: Not Given Documented by: Lidocaine HCl (Lidocaine 1% (10mg/Ml) For Iv Start) 0.1 ml INTRADERMA PER PROTOCOL PRN PRN Reason: IV Start Last Admin: 10/02/20 10:50 Dose: 0.1 ml Documented by: Lisinopril (Lisinopril 10 Mg Tab) 10 mg PO [facility] Last Admin: 10/05/20 21:11 Dose: 10 mg Documented by: Magnesium Hydroxide (Magnesium Hydroxide 2,400 Mg/10 Ml Cup) 2,400 mg PO DAILY PRN PRN Reason: Constipation Metformin HCl (Metformin 500 Mg Tab) 1,000 mg PO BID [facility] Last Admin: 10/05/20 21:11 Dose: 1,000 mg Documented by: Metoprolol Succinate (Metoprolol Succinate (Er) 50 Mg Tab.Er.24h) 50 mg PO [facility] Last Admin: 10/05/20 21:11 Dose: 50 mg Documented by: Non-Formulary Medication (Lovastatin) 20 mg PO [facility] Last Admin: 10/05/20 21:15 Dose: Not Given Documented by: Ondansetron HCl (Ondansetron 4 Mg/2 Ml Vial) 4 mg IVP ONCE PRN PRN Reason: PRE-OP Last Admin: 10/02/20 11:00 Dose: 4 mg Documented by: Ondansetron HCl (Ondansetron 4 Mg/2 Ml Vial) 4 mg IVP Q6HR PRN PRN Reason: Nausea Senna/Docusate Sodium (Sennosides-Docusate Sodium 1 Each Tab) 1 each PO DAILY [facility] Last Admin: 10/05/20 08:08 Dose: 1 each Documented by: Past medical history to include: Diabetes, hypertension, hyperlipidemia, obstructive sleep apnea does not use CPAP, peripheral neuropathy, gout, Social history: Lives with his . Alcohol occasionally. No smoking. Family history: Reviewed, noncontributory to presentation Physical examination: VITAL SIGNS: On 4, 67, 18, 113/70, 95% room air GENERAL: BMI 42.8, sitting up, in a chair EYES: Pupils equal. Conjunctiva normal. HEENT: External appearance of nose and ears normal, oral cavity grossly normal. NECK: JVD unable to assess masses not palpable. HEART: Heart sounds distant; no edema. LUNGS: Respiratory rate normal; distant breath sounds. ABDOMEN: Soft, nontender, liver spleen not palpable, no masses palpable. PSYCH: Alert and oriented x3; mood and affect normal. Investigations: WBC 12.7 hemoglobin 14.2 potassium 4.1 creatinine 1.2 Assessment and plan: -Lumbar stenosis L3-L4, L4-L5 with DJD with significant radiculopathy. Status post laminectomy and discectomy. -Morbid obesity BMI 42.8. For weight loss measures. Follow up with his PCP. See dietitian -Diabetes mellitus type 2, resume Glucophage, follow Accu-Cheks -Essential hypertension, continue with Toprol-XL Zestril colchicine -Hyperlipidemia, continue with Mevacor -Obstructive sleep apnea does not use CPAP -Diabetic peripheral neuropathy, follow clinically. Patient on Neurontin -Chronic gout, continue with allopurinol Discussed with the patient. Will be going to rehab possibly on Wednesday Thank you Dr. Devine
[2020-10-06] MEDS: HYDROmorphone 1 MG/ML 1 ML SYRINGE IVP PRN (01:27)
[2020-10-06 07:12] LABS: Glucose,Whole Blood 144 mg/dL (75-99)
[2020-10-06] MEDS: HYDROcodone/APAP 5-325MG 1 EACH TAB PO PRN ×3 (07:35→19:42)
[2020-10-06] MEDS: SENNOSIDES-DOCUSATE SODIUM 1 EACH TAB PO SCH (07:35)
[2020-10-06] MEDS: metFORMIN 500 MG TAB PO SCH ×2 (07:35→19:43)
[2020-10-06] MEDS: INSULIN ASPART (NovoLOG) 100 UNIT/ML VIAL SQ SCH ×4 (07:36→21:49)
[2020-10-06 11:34] LABS: Glucose,Whole Blood 135 mg/dL (75-99)
[2020-10-06 16:30] LABS: Glucose,Whole Blood 124 mg/dL (75-99)
--- NOTE | 2020-10-06 16:37 | P.PN ---
Progress Note - Text Progress Note Date: 10/06/20 Postoperative day #4 Patient is seen and examined today at bedside. He is up in a chair. He says he is making progress. He was able to have a bowel movement and his stomach feels better today. The patient has some pain around the surgical site as expected. Pain is being controlled with medication. He has been able to stand up on his own but he still feels very shaky on his feet. Physical Exam Afebrile with stable vital signs Abdomen is soft nontender. Chest has good excursion deep and space expiration The incision site is clean dry and intact. No erythema there is no purulence. The dressing is clear and his back Extremities have not had neurologic change from prior to surgery. He has sustained dorsal flexion plantar flexion and EHL intact Calves and thighs were soft nontender without evidence of DVT. Assessment/Plan Postoperative day #4 status post minimally invasive decompression and fusion L3 4 L4 5 for his severe spinal stenosis with lower extremity radiculopathy Patient is progressing a little bit slowly from the surgery in terms of his mobility. Part of this has to do with his body habitus as well as the severity of his stenosis. He is making slow but steady progress and I think he will be ready for discharge to rehab or residential tomorrow. They have been making arrangements for this. He has been able to have a bowel movement today. His wound remains clear. We will continue to increase the patient's mobilization with therapy. We will continue pain control with oral or IV medications. We'll continue to follow patient closely.
[2020-10-06] MEDS: allopurinoL 100 MG TAB PO SCH (19:43)
[2020-10-06] MEDS: GABAPENTIN 300 MG CAP PO SCH (19:43)
[2020-10-06] MEDS: METOPROLOL SUCCINATE (ER) 50 MG TAB.ER.24H PO SCH (19:43)
[2020-10-06] MEDS: lisinopriL 10 MG TAB PO SCH (19:44)
[2020-10-06] MEDS: COLCHICINE 0.6 MG EACH PO SCH (19:44)
[2020-10-06 20:29] LABS: Glucose,Whole Blood 148 mg/dL (75-99)
--- NOTE | 2020-10-06 21:28 | P.PN ---
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 Patient has a long-standing history of low back pain with neuropathy with pain going down the right leg. Causing difficulty in walking. Patient had been using a cane. Abnormality at L3-L4, L4-L5 DJD, spondylolisthesis. Patient underwent laminectomy and decompression. Today: Did walk about 96 feet with the ventilator. Pain control. Oral intake good. Had a bowel movement. Sitting up in a chair Review of systems: Was done for constitutional, cardiovascular, GI, pulmonary. relevant finding as above Active Medications Acetaminophen (Acetaminophen Tab 500 Mg Tab) 500 mg PO Q6H PRN PRN Reason: Pain Hydrocodone Bitart/Acetaminophen (Hydrocodone/Apap 5-325mg 1 Each Tab) 1 each PO Q4HR PRN PRN Reason: Moderate Pain Last Admin: 10/05/20 01:41 Dose: 1 each Documented by: Hydrocodone Bitart/Acetaminophen (Hydrocodone/Apap 5-325mg 1 Each Tab) 2 each PO Q4HR PRN PRN Reason: Moderate Pain Last Admin: 10/06/20 19:42 Dose: 2 each Documented by: Allopurinol (Allopurinol 100 Mg Tab) 100 mg PO HS [facility] Last Admin: 10/06/20 19:43 Dose: 100 mg Documented by: Benzocaine/Menthol (Benzocaine/Menthol Lozeng 1 Each Lozenge) 1 each MUCOUS MEM Q4HR PRN PRN Reason: Sore Throat Bisacodyl (Bisacodyl 5 Mg Tablet.) 5 mg PO DAILY PRN PRN Reason: Constipation Last Admin: 10/05/20 11:07 Dose: 5 mg Documented by: Colchicine (Colchicine 0.6 Mg Each) 0.6 mg PO HS [facility] Last Admin: 10/06/20 19:44 Dose: 0.6 mg Documented by: Dexamethasone Sodium Phosphate (Dexamethasone Sod Phosphate 4 Mg/Ml 1 Ml Vial) 4 mg IV ONCE PRN PRN Reason: PRE-OP Diazepam (Diazepam 5 Mg Tab) 5 mg PO QID PRN PRN Reason: Anxiety Gabapentin (Gabapentin 300 Mg Cap) 300 mg PO HS [facility] Last Admin: 10/06/20 19:43 Dose: 300 mg Documented by: Hydrochlorothiazide (Hydrochlorothiazide 50 Mg Tab) [address] [facility] Last Admin: 10/06/20 19:44 Dose: 50 mg Documented by: Hydromorphone HCl (Hydromorphone 0.5 Mg/0.5 Ml Syringe) 0.5 mg IVP Q4HR PRN PRN Reason: Pain Hydromorphone HCl (Hydromorphone 1 Mg/Ml 1 Ml Syringe) 1 mg IVP Q4HR PRN PRN Reason: Pain Last Admin: 10/06/20 01:27 Dose: 1 mg Documented by: Insulin Aspart (Insulin Aspart (Novolog) 100 Unit/Ml Vial) 0 unit SQ [facility]; Protocol Last Admin: 10/06/20 16:46 Dose: Not Given Documented by: Lidocaine HCl (Lidocaine 1% (10mg/Ml) For Iv Start) 0.1 ml INTRADERMA PER PROTOCOL PRN PRN Reason: IV Start Last Admin: 10/02/20 10:50 Dose: 0.1 ml Documented by: Lisinopril (Lisinopril 10 Mg Tab) [address] [facility] Last Admin: 10/06/20 19:44 Dose: 10 mg Documented by: Magnesium Hydroxide (Magnesium Hydroxide 2,400 Mg/10 Ml Cup) 2,400 mg PO DAILY PRN PRN Reason: Constipation Last Admin: 10/06/20 07:36 Dose: 2,400 mg Documented by: Metformin HCl (Metformin 500 Mg Tab) 1,000 mg PO BID [facility] Last Admin: 10/06/20 19:43 Dose: 1,000 mg Documented by: Metoprolol Succinate (Metoprolol Succinate (Er) 50 Mg Tab.Er.24h) [address] [facility] Last Admin: 10/06/20 19:43 Dose: 50 mg Documented by: Non-Formulary Medication (Lovastatin) [address] [facility] Last Admin: 10/05/20 21:15 Dose: Not Given Documented by: Ondansetron HCl (Ondansetron 4 Mg/2 Ml Vial) 4 mg IVP ONCE PRN PRN Reason: PRE-OP Last Admin: 10/02/20 11:00 Dose: 4 mg Documented by: Ondansetron HCl (Ondansetron 4 Mg/2 Ml Vial) 4 mg IVP Q6HR PRN PRN Reason: Nausea Senna/Docusate Sodium (Sennosides-Docusate Sodium 1 Each Tab) 1 each PO DAILY [facility] Last Admin: 10/06/20 07:35 Dose: 1 each Documented by: Past medical history to include: Diabetes, hypertension, hyperlipidemia, obstructive sleep apnea does not use CPAP, peripheral neuropathy, gout, Social history: Lives with his . Alcohol occasionally. No smoking. Family history: Reviewed, noncontributory to presentation Physical examination: VITAL SIGNS: 97.5, 72, 16, 120s by 70, 98% room air GENERAL: , sitting up, in a chair EYES: Pupils equal. Conjunctiva normal. HEENT: External appearance of nose and ears normal, oral cavity grossly normal. NECK: JVD unable to assess masses not palpable. HEART: Heart sounds distant; no edema. LUNGS: Respiratory rate normal; distant breath sounds. ABDOMEN: Soft, nontender, liver spleen not palpable, no masses palpable. PSYCH: Alert and oriented x3; mood and affect normal. Investigations: WBC 12.7 hemoglobin 14.2 potassium 4.1 creatinine 1.2 Assessment and plan: -Lumbar stenosis L3-L4, L4-L5 with DJD with significant radiculopathy. Status post laminectomy and discectomy. -Morbid obesity BMI 42.8. For weight loss measures. Follow up with his PCP. See dietitian -Diabetes mellitus type 2, resume Glucophage, follow Accu-Cheks -Essential hypertension, continue with Toprol-XL Zestril colchicine -Hyperlipidemia, continue with Mevacor -Obstructive sleep apnea does not use CPAP -Diabetic peripheral neuropathy, follow clinically. Patient on Neurontin -Chronic gout, continue with allopurinol -Acute gait dysfunction from surgery. Using a walker. Discussed with the patient. Will be going to rehab possibly on Wednesday Thank you Dr. Devine
[2020-10-06 21:45] LABS: Glucose,Whole Blood 142 mg/dL (75-99)
[2020-10-06] MEDS: NON FORMULARY DRUG (Lovastatin 20 MG Tab) PO SCH (21:48)
[2020-10-07] MEDS: HYDROcodone/APAP 5-325MG 1 EACH TAB PO PRN ×5 (00:09→21:03)
[2020-10-07 07:09] LABS: Glucose,Whole Blood 147 mg/dL (75-99)
[2020-10-07] MEDS: SENNOSIDES-DOCUSATE SODIUM 1 EACH TAB PO SCH (07:32)
[2020-10-07] MEDS: INSULIN ASPART (NovoLOG) 100 UNIT/ML VIAL SQ SCH ×4 (07:32→21:02)
[2020-10-07] MEDS: metFORMIN 500 MG TAB PO SCH ×2 (07:32→21:01)
[2020-10-07] MEDS: bisacodyL 5 MG TABLET.DR PO PRN (07:34)
--- NOTE | 2020-10-07 10:53 | P.DS ---
Providers Date of admission: 10/02/20 09:54 Attending physician: Piyush Devine Consults: 10/02/20 16:41 Consult Physician Routine Consulting Provider: Billy Shelton Consult Reason/Comments: Medical management Do you want consulting provider notified?: Yes Primary care physician: [facility] Course: The patient presented on the day of admission as per their operative note. He underwent minimally invasive decompression and fusion L3 4 L4 5 for his severe spinal stenosis with degenerative disc disease and lower extremity radiculopathy. The patient has been making progress and feels that his legs are doing better. He feels that his back feels solid. He still having occasional spasms in his right lower extremity has he was prior to his surgery. He feels he is improving in his mobilization overall. He has been able have a bowel movement. Physical Exam The incision site is clean dry and intact. There is no erythema no drainage. There is no purulence no evidence of infection. There is no active drainage. There is some bruising of the incision site is clear. Abdomen soft and nontender. Chest has good excursion with deep inspiration and expiration. The patient has active and passive range of motion intact at the upper and lower extremities. There is no acute change in neurologic status. He has sustained dorsal flexion plantarflexion and [facility] Course Postoperative day #5 status post minimally invasive decompression and fusion L3 4 L4 5 for his or spinal stenosis with lower extremity radiculopathy and weakness. The patient has been making slow and steady progress postoperatively. They have completed the prophylactic antibiotics without any signs or symptoms of infection. The patient has been able to advance their diet, and is tolerating diet adequately. The pain was initially controlled with IV medications and is now controlled appropriately with oral medications. The patient has been able to increase their mobilization. He is getting up with assistance and has been able to ambulate but still having some difficulty doing this on his own. The patient has progressed appropriately. I think they are in good stable condition for discharge today to half-way rehab unit for continued strengthening mobilization and care prior to being able to be discharged home safely. They will be sent home with appropriate prescriptions. He is continuing his medical management and medications. I answered their questions to the best of my ability in a language that they can understand and they are agreeable with the plan. They will follow up as directed in approximately 2 weeks' time or sooner if he is having problems. Patient Condition at Discharge: Fair Plan - Discharge Summary Discharge Rx Participant: Yes New Discharge Prescriptions: New HYDROcodone/APAP 5-325MG [[place] 5] 1 each PO Q4HR PRN #42 tab PRN Reason: Pain No Action Metoprolol Succinate [Toprol XL] 50 mg PO HS Lisinopril [Zestril] 10 mg PO HS Gabapentin [Neurontin] 300 mg PO HS hydroCHLOROthiazide [Hydrodiuril] 50 mg PO HS Lovastatin [Mevacor] 20 mg PO HS Colchicine [Colcrys] 0.6 mg PO HS Allopurinol [Zyloprim] 100 mg PO HS metFORMIN HCL [Glucophage] 1,000 mg PO BID Acetaminophen [Tylenol Extra Strength] 500 mg PO DIRECTED PRN PRN Reason: Pain Discharge Medication List Acetaminophen [Tylenol Extra Strength] 500 mg PO DIRECTED PRN 09/16/20 [History] Allopurinol [Zyloprim] 100 mg PO HS 09/16/20 [History] Colchicine [Colcrys] 0.6 mg PO HS 09/16/20 [History] Gabapentin [Neurontin] 300 mg PO HS 09/16/20 [History] Lisinopril [Zestril] 10 mg PO HS 09/16/20 [History] Lovastatin [Mevacor] 20 mg PO HS 09/16/20 [History] Metoprolol Succinate [Toprol XL] 50 mg PO HS 09/16/20 [History] hydroCHLOROthiazide [Hydrodiuril] 50 mg PO HS 09/16/20 [History] metFORMIN HCL [Glucophage] 1,000 mg PO BID 09/16/20 [History] HYDROcodone/APAP 5-325MG [[place] 5] 1 each PO Q4HR PRN #42 tab 10/03/20 [Rx] Follow up Appointment(s)/Referral(s): Piyush Devine DO [Doctor of Osteopathic Medicine] - 2 Weeks [facility],Equipment [NON-STAFF] - (*Please call [facility] if you have questions regarding your new walker. ) Activity/Diet/Wound Care/Special Instructions: Keep site clean. May shower with waterproof Tegaderm intact. Do not soak in a tub. After 72 hours postoperatively, patient May remove dressing and then may shower with area uncovered. Leave Steri-Strips intact and allow them to fray off on their own. May ambulate as tolerated. Avoid heavy or rigorous activity. No repetitive bending twisting or lifting. No overhead work. Discharge Disposition: TRANSFER TO SNF/ECF
[2020-10-07 11:59] LABS: Glucose,Whole Blood 102 mg/dL (75-99)
[2020-10-07] MEDS ORDERED: bisacodyL 10 MG SUPP RECTAL STA (12:34)
--- NOTE | 2020-10-07 15:32 | XR ---
EXAMINATION TYPE: XR chest 1V DATE OF EXAM: 10/07/2020 HISTORY: Shortness of breath. COMPARISON: None. TECHNIQUE: Single view of the chest is submitted. FINDINGS: Demonstrated are scattered senescent parenchymal change. There is no evidence for focal infiltrate. The heart is stable. Hilar and mediastinal structures are within normal limits. Degenerative changes are seen of the dorsal spine. IMPRESSION: 1. Chronic changes without evidence for acute pulmonary disease.
[2020-10-07 16:43] LABS: Glucose,Whole Blood 116 mg/dL (75-99)
[2020-10-07 20:41] LABS: Glucose,Whole Blood 141 mg/dL (75-99)
[2020-10-07] MEDS: METOPROLOL SUCCINATE (ER) 50 MG TAB.ER.24H PO SCH (21:01)
[2020-10-07] MEDS: allopurinoL 100 MG TAB PO SCH (21:01)
[2020-10-07] MEDS: lisinopriL 10 MG TAB PO SCH (21:02)
[2020-10-07] MEDS: COLCHICINE 0.6 MG EACH PO SCH (21:02)
[2020-10-07] MEDS: NON FORMULARY DRUG (Lovastatin 20 MG Tab) PO SCH (21:02)
[2020-10-07] MEDS: GABAPENTIN 300 MG CAP PO SCH (21:02)
--- NOTE | 2020-10-07 22:24 | P.PN ---
Progress Note - Text Progress Note Date: 10/07/20 - Chief Complaint Lumbar surgery Consultation: This is a pleasant 65-year-old patient, Dr. Mcgovern chronic stable medical conditions include diabetes, hypertension, hyperlipidemia, peripheral neuropathy, gout, does not use CPAP. Patient has a long-standing history of low back pain with neuropathy with pain going down the right leg. Causing difficulty in walking. Patient had been using a cane. Abnormality at L3-L4, L4-L5 DJD, spondylolisthesis. Patient underwent laminectomy and decompression. Today: Oral intake good. Did walk with therapist. With a walker. Pain control. Oral intake good. Review of systems: Was done for constitutional, cardiovascular, GI, pulmonary. relevant finding as above Active Medications Acetaminophen (Acetaminophen Tab 500 Mg Tab) 500 mg PO Q6H PRN PRN Reason: Pain Hydrocodone Bitart/Acetaminophen (Hydrocodone/Apap 5-325mg 1 Each Tab) 1 each PO Q4HR PRN PRN Reason: Moderate Pain Last Admin: 10/07/20 17:14 Dose: 1 each Documented by: Hydrocodone Bitart/Acetaminophen (Hydrocodone/Apap 5-325mg 1 Each Tab) 2 each PO Q4HR PRN PRN Reason: Moderate Pain Last Admin: 10/07/20 21:03 Dose: 2 each Documented by: Allopurinol (Allopurinol 100 Mg Tab) 100 mg PO [facility] Last Admin: 10/07/20 21:01 Dose: 100 mg Documented by: Benzocaine/Menthol (Benzocaine/Menthol Lozeng 1 Each Lozenge) 1 each MUCOUS MEM Q4HR PRN PRN Reason: Sore Throat Bisacodyl (Bisacodyl 5 Mg Tablet.) 5 mg PO DAILY PRN PRN Reason: Constipation Last Admin: 10/07/20 07:34 Dose: 5 mg Documented by: Colchicine (Colchicine 0.6 Mg Each) 0.6 mg PO [facility] Last Admin: 10/07/20 21:02 Dose: 0.6 mg Documented by: Dexamethasone Sodium Phosphate (Dexamethasone Sod Phosphate 4 Mg/Ml 1 Ml Vial) 4 mg IV ONCE PRN PRN Reason: PRE-OP Diazepam (Diazepam 5 Mg Tab) 5 mg PO QID PRN PRN Reason: Anxiety Gabapentin (Gabapentin 300 Mg Cap) 300 mg PO [facility] Last Admin: 10/07/20 21:02 Dose: 300 mg Documented by: Hydrochlorothiazide (Hydrochlorothiazide 50 Mg Tab) 50 mg PO [facility] Last Admin: 10/07/20 21:01 Dose: 50 mg Documented by: Hydromorphone HCl (Hydromorphone 0.5 Mg/0.5 Ml Syringe) 0.5 mg IVP Q4HR PRN PRN Reason: Pain Hydromorphone HCl (Hydromorphone 1 Mg/Ml 1 Ml Syringe) 1 mg IVP Q4HR PRN PRN Reason: Pain Last Admin: 10/06/20 01:27 Dose: 1 mg Documented by: Insulin Aspart (Insulin Aspart (Novolog) 100 Unit/Ml Vial) 0 unit SQ [facility]; Protocol Last Admin: 10/07/20 21:02 Dose: 1 unit Documented by: Lidocaine HCl (Lidocaine 1% (10mg/Ml) For Iv Start) 0.1 ml INTRADERMA PER PROTOCOL PRN PRN Reason: IV Start Last Admin: 10/02/20 10:50 Dose: 0.1 ml Documented by: Lisinopril (Lisinopril 10 Mg Tab) 10 mg PO [facility] Last Admin: 10/07/20 21:02 Dose: 10 mg Documented by: Magnesium Hydroxide (Magnesium Hydroxide 2,400 Mg/10 Ml Cup) 2,400 mg PO DAILY PRN PRN Reason: Constipation Last Admin: 10/06/20 07:36 Dose: 2,400 mg Documented by: Metformin HCl (Metformin 500 Mg Tab) 1,000 mg PO BID [facility] Last Admin: 10/07/20 21:01 Dose: 1,000 mg Documented by: Metoprolol Succinate (Metoprolol Succinate (Er) 50 Mg Tab.Er.24h) 50 mg PO [facility] Last Admin: 10/07/20 21:01 Dose: 50 mg Documented by: Non-Formulary Medication (Lovastatin) 20 mg PO [facility] Last Admin: 10/07/20 21:02 Dose: Not Given Documented by: Ondansetron HCl (Ondansetron 4 Mg/2 Ml Vial) 4 mg IVP ONCE PRN PRN Reason: PRE-OP Last Admin: 10/02/20 11:00 Dose: 4 mg Documented by: Ondansetron HCl (Ondansetron 4 Mg/2 Ml Vial) 4 mg IVP Q6HR PRN PRN Reason: Nausea Senna/Docusate Sodium (Sennosides-Docusate Sodium 1 Each Tab) 1 each PO DAILY [facility] Last Admin: 10/07/20 07:32 Dose: 1 each Documented by: Past medical history to include: Diabetes, hypertension, hyperlipidemia, obstructive sleep apnea does not use CPAP, peripheral neuropathy, gout, Social history: Lives with his . Alcohol occasionally. No smoking. Family history: Reviewed, noncontributory to presentation Physical examination: VITAL SIGNS: 97.8, 94, 19, 131/83, 94% room air GENERAL: , sitting up, in a chair EYES: Pupils equal. Conjunctiva normal. HEENT: External appearance of nose and ears normal, oral cavity grossly normal. NECK: JVD unable to assess masses not palpable. HEART: Heart sounds distant; no edema. LUNGS: Respiratory rate normal; distant breath sounds. ABDOMEN: Soft, nontender, liver spleen not palpable, no masses palpable. PSYCH: Alert and oriented x3; mood and affect normal. Investigations: WBC 12.7 hemoglobin 14.2 potassium 4.1 creatinine 1.2 Assessment and plan: -Lumbar stenosis L3-L4, L4-L5 with DJD with significant radiculopathy. Status post laminectomy and discectomy. -Morbid obesity BMI 42.8. For weight loss measures. Follow up with his PCP. See dietitian -Diabetes mellitus type 2, resume Glucophage, follow Accu-Cheks -Essential hypertension, continue with Toprol-XL Zestril colchicine -Hyperlipidemia, continue with Mevacor -Obstructive sleep apnea does not use CPAP -Diabetic peripheral neuropathy, follow clinically. Patient on Neurontin -Chronic gout, continue with allopurinol -Acute gait dysfunction from surgery. Using a walker. Stable. Continue current medication treatment plan. Thank you Dr. Devine
[2020-10-08] MEDS: HYDROcodone/APAP 5-325MG 1 EACH TAB PO PRN ×4 (01:07→14:33)
[2020-10-08 06:55] LABS: Glucose,Whole Blood 128 mg/dL (75-99)
[2020-10-08] MEDS: INSULIN ASPART (NovoLOG) 100 UNIT/ML VIAL SQ SCH ×3 (09:06→17:33)
[2020-10-08] MEDS: metFORMIN 500 MG TAB PO SCH (09:50)
[2020-10-08] MEDS: SENNOSIDES-DOCUSATE SODIUM 1 EACH TAB PO SCH (09:51)
[2020-10-08 11:31] LABS: Glucose,Whole Blood 127 mg/dL (75-99)
[2020-10-08 13:11] VITALS: BP 122/74; PULSE 77; RESP 14; TEMP 97.7
[2020-10-08 14:28] VITALS: BMI 42.8
[2020-10-08 16:41] LABS: Glucose,Whole Blood 124 mg/dL (75-99)
== END 2020-10-08 21:21 | disposition home health service (06) | DRG 454 ==
LOC: 2ORMAIN 09:54 → EDSTATUS 11:15 → 4SSUR 17:31
PROVIDERS: ADMIT Orthopaedic Surgery Orthopaedic Surgery of the Spine; ATTEND Orthopaedic Surgery Orthopaedic Surgery of the Spine
PROC: 0SG1071 Fusion of 2 or more Lumbar Vertebral Joints with Autologous Tissue Substitute, Posterior Approach, Posterior Column, Open Approach (ICD-10-PCS; 2020-10-02)
PROC: 0ST20ZZ Resection of Lumbar Vertebral Disc, Open Approach (ICD-10-PCS; 2020-10-02)
PROC: 01NB0ZZ Release Lumbar Nerve, Open Approach (ICD-10-PCS; 2020-10-02)
PROC: 8E0WXBG Computer Assisted Procedure of Trunk Region, With Computerized Tomography (ICD-10-PCS; 2020-10-02)
PROC: 0SG10AJ Fusion of 2 or more Lumbar Vertebral Joints with Interbody Fusion Device, Posterior Approach, Anterior Column, Open Approach (ICD-10-PCS; principal; 2020-10-02 11:15)
DX: M48.062 Spinal stenosis, lumbar region with neurogenic claudication (principal); Z68.41 Body mass index [BMI] 40.0-44.9, adult; E11.42 Type 2 diabetes mellitus with diabetic polyneuropathy; E66.01 Morbid (severe) obesity due to excess calories; Z20.822 Contact with and (suspected) exposure to COVID-19; M51.16 Intervertebral disc disorders with radiculopathy, lumbar region; M43.16 Spondylolisthesis, lumbar region; I10 Essential (primary) hypertension; E78.5 Hyperlipidemia, unspecified; G47.33 Obstructive sleep apnea (adult) (pediatric); M1A.9XX0 Chronic gout, unspecified, without tophus (tophi); M47.26 Other spondylosis with radiculopathy, lumbar region; M47.817 Spondylosis without myelopathy or radiculopathy, lumbosacral region; K59.00 Constipation, unspecified; R26.2 Difficulty in walking, not elsewhere classified; Z71.3 Dietary counseling and surveillance; Z79.84 Long term (current) use of oral hypoglycemic drugs; Z79.899 Other long term (current) drug therapy; Z98.890 Other specified postprocedural states; Z88.6 Allergy status to analgesic agent; Z88.8 Allergy status to other drugs, medicaments and biological substances; Z83.3 Family history of diabetes mellitus; Z82.49 Family history of ischemic heart disease and other diseases of the circulatory system
CPT/HCPCS: 71045; 72100; 80048; 85025; 86850; 86891; 86900; 86901; 87635; 94760

== ENCOUNTER → 2021-04-18 | Outpatient (CLI) | payer MEDICARE ==
--- NOTE | 2021-04-19 10:38 | NM ---
EXAMINATION TYPE: NM DatScan Brain SPECT DATE OF EXAM: 04/18/2021 COMPARISON: NONE HISTORY: History of tremors. TECHNIQUE: 10 drops of Lugol's solution was administered 1 hour prior to injection as a thyroid bloc roseann agent. After the administration of 4.36 mCi I-123 Ioflupane DaTscan. Images obtained 3 hours p ost injection. SPECT images of the brain were acquired with axial and coronal reconstructions. FINDINGS: The DaTSCAN demonstrates significantly reduced uptake of tracer bilaterally to the striata, indicatin g the loss of the presynaptic dopaminergic terminals. IMPRESSION: This abnormal appearance would be supportive of a clinical diagnosis of either DLB, idiopathic PD, PS or Parkinson?s dementia disease.
== END | disposition home or self-care (01) ==
LOC: RADNMMAIN 10:53
PROVIDERS: ATTEND Psychiatry & Neurology Neurology
DX: G20 Parkinson's disease (principal)
CPT/HCPCS: 78803; A9584